=== PATIENT | female | born 1990 | race Asian ===

== ENCOUNTER 2025-07-19 12:27 | Emergency (ER) | payer OTHER ==
[~2025-07-19] VITALS: Ht 165.1 cm; Wt 54.4 kg
[2025-07-19 12:44] VITALS: BP 111/68; TEMP 98.5; O2SAT 97
[2025-07-19] MEDS ORDERED: RABIES VACCINE (PCEC)/PF 1 EA KIT IM ONE (13:42)
[2025-07-19] MEDS: RABIES VACCINE (PCEC)/PF 1 EA KIT IM ONE (13:48)
== END 2025-07-19 13:55 | disposition home or self-care (01) ==
LOC: ER 12:27
DX: Z23 Encounter for immunization (principal); Z20.3 Contact with and (suspected) exposure to rabies